=== PATIENT | female | born 1990 | race Caucasian/White ===

== ENCOUNTER 2019-02-15 21:14 | Emergency (ER) | payer OTHER ==
[2019-02-15] MEDS: SOD CHLORIDE 0.9% 100 ML (21:31)
[2019-02-15] MEDS: IOHEXOL 300MG/ML 150 ML BTL (21:31)
[2019-02-15 21:51] LABS: ADD MAN DIFF? NO
[2019-02-15 21:53] LABS: WHITE BLOOD COUNT 9.5 10^3/ul (4.8-10.8)
[2019-02-15 21:53] LABS: BASOPHIL # 0.2 10^3/ul (0.0-0.1); BASOPHILS % 1.6 % (0.0-2.0); EOSINOPHILS # 0.1 10^3/ul (0.0-0.5); EOSINOPHILS % 1.1 % (0.0-7.0); HEMATOCRIT 40.1 % (37.0-47.0); HEMOGLOBIN 13.8 g/dl (12.0-16.0); LYMPHOCYTES # 4.9 10^3/ul (0.8-2.9); LYMPHOCYTES % 51.8 % (15.0-51.0); MEAN CORPUSCULAR HEMOGLOBIN 34.7 pg (29.0-33.0); MEAN CORPUSCULAR HGB CONC 34.4 g/dl (32.0-37.0); MEAN CORPUSCULAR VOLUME 100.8 fl (82.0-101.0); MONOCYTE # 0.5 10^3/ul (0.3-0.9); MONOCYTES % 4.7 % (0.0-11.0); NEUTROPHIL # 3.9 10^3/ul (1.6-7.5); NEUTROPHILS % 40.6 % (39.0-77.0); PLATELET COUNT 107 10^3/UL (140-415); RED BLOOD COUNT 3.98 10^6/ul (4.20-5.40)
[2019-02-15] MEDS: SOD CHLORIDE 0.9% 1,000 ML IV (22:07)
[2019-02-15] MEDS: LIDOCAINE 1%/EPI (1:100,000) (MDV) 20 ML INJ (22:07)
[2019-02-15 22:13] LABS: INR 1.13; PARTIAL THROMBOPLASTIN TIME 36.5 Sec (23.0-35.0); PROTIME 14.6 Sec (11.9-14.9); PT RATIO 1.1
[2019-02-15 22:14] LABS: ANION GAP 15 (5-13); BLOOD UREA NITROGEN 10 mg/dl (7-20); CALCIUM 9.2 mg/dl (8.4-10.2); CARBON DIOXIDE 24 mmol/L (21-31); CHLORIDE 108 mmol/L (97-110); CREATININE 0.47 mg/dl (0.44-1.00); Estimated GFR > 60 mL/min (>60); GLUCOSE 83 mg/dl (70-220); POTASSIUM 4.2 mmol/L (3.5-5.1); SODIUM 147 mmol/L (135-144)
[2019-02-15] MEDS: LIDOCAINE 1%/EPI 30 ML INJ INJ (22:59)
[2019-02-16] MEDS: ACETAMINOPHEN 325 MG TAB PO (02:58)
== END 2019-02-16 02:58 | disposition home or self-care (01) ==
LOC: E/R 21:14
DX: S01.111A Laceration without foreign body of right eyelid and periocular area, initial encounter (principal); S09.90XA Unspecified injury of head, initial encounter; F10.920 Alcohol use, unspecified with intoxication, uncomplicated; V59.88XA Occupant (driver) (passenger) of pick-up truck or van injured in other specified transport accidents, initial encounter
CPT/HCPCS: 12013; 36415; 70450; 70486; 71260; 72125; 74177; 80048; 80307; 85025; 85610; 85730; 93005; 99285-25